=== PATIENT | male | born 1980 | race Caucasian/White ===

== ENCOUNTER 2016-10-18 07:31 | Emergency (ER) | payer BC ==
[2016-10-18 08:06] VITALS: BP 113/64
[2016-10-18] MEDS ORDERED: KETOROLAC 30 MG/ML VIAL. IV ONE (08:30)
[2016-10-18] MEDS ORDERED: ONDANSETRON PF 4 MG/2 ML VIAL. IV ONE (08:30)
[2016-10-18] MEDS ORDERED: fentaNYL PF 250 MCG/5 ML VIAL IV ONE (08:30)
--- NOTE | 2016-10-18 09:14 | RAD ---
Exam performed: CT abdomen pelvis without contrast. History: Left flank and lower back pain this morning no known injury. Date of service: 10/10/16. Comparison: None available Technique: Contiguous helical acquisitions are obtained through the abdomen and pelvis without IV contrast renal stone protocol. Sagittal and coronal reformatted images are obtained and reviewed. Findings: 2.6 mm calculus at the left vesicoureteric conjunction causing mild fullness of the left collecting system and ureter. No intrarenal calculi are identified. There is no perinephric stranding. Lung bases are clear. Visualized heart is normal. Lack of IV contrast limits evaluation of abdominal viscera, however the liver, spleen, pancreas and gallbladder are normal. Aorta is normal in caliber. The small bowel loops are nondilated. Diffuse scattered stool in the colon. Visualized appendix is normal. The urinary bladder is decompressed. The prostate gland, seminal vesicles and rectum appear normal. Impression: A 2.6 mm calculus in the distal left ureter at the vesicoureteral junction causing mild proximal fullness. Diffuse scattered stool throughout the colon. Correlate clinically with constipation. PQRS Compliance Statement: One or more of the following individualized dose reduction techniques were utilized for this examination: 1. Automated exposure control 2. Adjustment of the mA and/or kV according to patient size 3. Use of iterative reconstruction technique
--- NOTE | 2016-10-18 14:57 | ED.ADGEN ---
Past History Past Medical History: No Pertinent History Past Surgical History: No Surgical History Alcohol Use: None Drug Use: None Adult General Chief Complaint Chief Complaint Left flank pain HPI HPI Patient is a 36-year-old male who presents with acute onset left flank pain radiating to left lower quadrant. Pain started approximately 20 minutes prior to ED arrival. This described as sharp, intermittent, rated moderate to severe. Associated symptoms include nausea, sweats and restlessness. Patient denies vomiting, testicular pain, swelling masses and hematuria. No history of kidney stones. Denies history of chronic kidney disease. No history of diverticulitis or prior abdominal surgeries. No other acute symptoms or complaints. [] Review of Systems Review of Systems ROS as per HPI. All other ROS are negative. Current Medications Current Medications Current Medications Medications (Trade) Dose Ordered Sig/Mark Start Time Stop Time Status Last Admin Dose Admin Fentanyl Citrate (Fentanyl 5ml Vial) 100 mcg 1X ONCE 10/18/16 08:30 10/18/16 08:31 DC 10/18/16 08:48 100 MCG Ketorolac Tromethamine (Toradol) 30 mg 1X ONCE 10/18/16 08:30 10/18/16 08:31 DC 10/18/16 08:47 30 MG Ondansetron HCl (Zofran) 4 mg 1X ONCE 10/18/16 08:30 10/18/16 08:31 DC 10/18/16 08:47 4 MG Allergies Allergies Allergies Coded Allergies Type Severity Reaction Last Updated Verified No Known Drug Allergies 10/18/16 No Physical Exam Physical Exam Constitutional: Well developed, well nourished, moderate distress secondary to pain. [] HENT: Normocephalic, atraumatic, bilateral external ears normal, oropharynx moist, no oral exudates, nose normal. [] Eyes: PERRLA, EOMI, conjunctiva normal, no discharge. [] Neck: Normal range of motion, no tenderness, supple, no stridor. [] Cardiovascular:Heart rate regular rhythm, no murmur [] Lungs & Thorax: Bilateral breath sounds clear to auscultation [] Abdomen: Bowel sounds normal, soft, no tenderness, no masses, no pulsatile masses. [] Skin: Warm, dry, no erythema, no rash. [] Back: No tenderness, no CVA tenderness. [] Extremities: No tenderness, no cyanosis, no clubbing, ROM intact, no edema. [] Neurologic: Alert and oriented X 3, normal motor function, normal sensory function, no focal deficits noted. [] Psychologic: Affect normal, judgement normal, mood normal. [] Current Patient Data Vital Signs Vital Signs Date Time Temp Pulse Resp B/P (MAP) Pulse Ox O2 Delivery O2 Flow Rate FiO2 10/18/16 08:48 20 10/18/16 08:06 100.1 54 100 Room Air EKG EKG [] Radiology/Procedures Radiology/Procedures [CT abdomen and pelvis, distal left ureteral stone, 2.5 mm alone a proximal CVA. ] Course & Med Decision Making Course & Med Decision Making Pertinent Labs and Imaging studies reviewed. (See chart for details) [Patient resting pain free after treatment in the emergency department. CT confirms diagnosis of kidney stone. Recommend continued supportive care with PCP follow-up. Return precautions reviewed.] Final Impression Final Impression [1. Left flank pain 2. Acute Kidney Injury] Problems: Dragon Disclaimer Dragon Disclaimer This electronic medical record was generated, in whole or in part, using a voice recognition dictation system. FERCHO PIEDRA DO Oct 18, 2016 14:57
== END 2016-10-18 11:23 | disposition home or self-care (01) ==
LOC: ER 07:31
DX: N17.9 Acute kidney failure, unspecified (principal)
CPT/HCPCS: 74176; 96374; 96375; 99284; J1885; J2405; J3010; 96376